=== PATIENT | male | born 1980 | race Caucasian/White ===

== ENCOUNTER 2024-03-23 07:47 | Day surgery (SDC) | payer BC ==
[2024-03-21 13:39] VITALS: BMI 24.4
[2024-03-23] MEDS ORDERED: EPINEPHrine 1 MG/ML VIAL ONE (08:22)
[2024-03-23] MEDS ORDERED: Rocuronium Bromide 10 MG/ML (10ML VIAL) ONE ×2 (08:32→08:34)
[2024-03-23] MEDS ORDERED: Ondansetron PF 4 MG/2 ML Vial ONE (08:32)
[2024-03-23] MEDS ORDERED: Dexamethasone 20 MG/5 ML VIAL ONE (08:32)
[2024-03-23] MEDS ORDERED: PROPOFOL 20 ML ONE (08:32)
[2024-03-23] MEDS ORDERED: fentaNYL 50 mcg/mL 1 mL Vial ONE ×2 (08:32→10:39)
[2024-03-23] MEDS ORDERED: Midazolam HCl 2 mg/2 ml Vial ONE ×2 (08:33→08:41)
[2024-03-23] MEDS ORDERED: Lidocaine 1% PF 5 ML VIAL ONE (08:33)
[2024-03-23] MEDS ORDERED: Iopamidol 300 61% 100 ML VIAL FS ONE (09:48)
[2024-03-23] MEDS ORDERED: Hydrocodone-Acetamin 15 ML UDCUP ONE (12:28)
== END 2024-03-23 13:15 | disposition home or self-care (01) ==
LOC: CSHSDC 07:47
PROVIDERS: ATTEND Otolaryngology Plastic Surgery within the Head & Neck
PROC: 0CBR8ZX Excision of Epiglottis, Via Natural or Artificial Opening Endoscopic, Diagnostic (ICD-10-PCS; principal; 2024-03-23)
DX: J38.01 Paralysis of vocal cords and larynx, unilateral (principal); J38.2 Nodules of vocal cords; R49.0 Dysphonia; F17.210 Nicotine dependence, cigarettes, uncomplicated
CPT/HCPCS: 70492; 71270; 88305; 88331; 93005; 93010; J0171; J1100; J2250; J2405; J2704; J3010; Q9967